=== PATIENT | female | born 1930 | race Caucasian/White ===

== ENCOUNTER → 2017-03-11 | Outpatient (CLI) | payer MEDICARE, BC ==
[~2017-03-11] MED LIST: ASA CHILDREN'S81 MG PO; ASCORBIC ACID250 MG PO; CARAFATE D1 GM/10 ML PO; CEFTIN250 MG PO; COUMADIN1 MG PO; COUMADIN2 MG PO; COUMADIN2.5 MG PO; DULCOLAX-DPS10 MG PO; FEOSOL-DPS325 MG PO; HYDROCODONE 10M10 MG PO; HYDROCODONE 7.7.5 MG PO; KEFLEX-DPS500 MG PO; LOVENOX DP40 MG/0.4 SQ; MILK OF MAGNESI10 ML PO; MIRALAX PACKET17 GM PO; OXY IR DPS5 MG PO; PEPCID20 MG PO; PRESERVISION A1 EAC1 PO; SENOKOT S1 TAB PO; SENOKOT8.6 MG PO; TYLENOL DPS325 MG PO; TYLENOL EXTRA500 M1 PO; TYLENOL325 MG PO; ULTRAM DPS50 MG PO; ULTRAM50 MG PO; XANAX0.25 MG PO
== END | disposition home or self-care (01) ==
LOC: RAD.S 09:20
DX: R41.3 Other amnesia (principal); G31.9 Degenerative disease of nervous system, unspecified; R26.9 Unspecified abnormalities of gait and mobility; R29.91 Unspecified symptoms and signs involving the musculoskeletal system; Z79.01 Long term (current) use of anticoagulants